=== PATIENT | male | born 1950 | race Caucasian/White ===

== ENCOUNTER 2019-03-25 14:40 | Emergency (ER) | payer MEDICARE ==
[~2019-03-25] VITALS: Ht 170.2 cm; Wt 65.0 kg
[2019-03-25 16:22] VITALS: BP 92/45
== END 2019-03-25 16:24 | disposition home or self-care (01) ==
LOC: ED 15:25
DX: I95.9 Hypotension, unspecified (principal); N18.6 End stage renal disease; R42 Dizziness and giddiness; R11.10 Vomiting, unspecified
CPT/HCPCS: 93005; 99283